=== PATIENT | male | born 1950 | race Caucasian/White ===

== ENCOUNTER 2022-04-08 15:32 | Inpatient (IN) ==
[2022-04-09] MEDS: Acetaminophen 325 MG TABLET PO PRN (20:19)
[2022-04-09] MEDS: carvediloL 6.25 MG TABLET PO SCH (20:25)
[2022-04-09] MEDS: Nystatin SUSP 5 ML UD.LIQ PO SCH (20:27)
[2022-04-09] MEDS: NIFEdipine XL (24 HR) 30 MG TAB.ER.24 PO SCH (20:27)
[2022-04-09] MEDS: Melatonin 3 MG TABLET PO SCH (20:33)
[2022-04-09] MEDS: Mirtazapine 15 MG TABLET PO SCH (20:33)
[2022-04-10 04:30] LABS: Basophils % 0.2 %; Eosinophils % 0.2 %; Hematocrit 25.7 % (37.5-50.1); Hemoglobin 8.9 g/dL (12.9-16.9); Lymphocytes % 15.8 %; Mean Corpuscular HGB Conc 34.6 g/dL (31.6-35.5); Mean Corpuscular Hemoglobin 28.7 pg (28.0-33.3); Mean Corpuscular Volume 82.9 fL (83.0-100.0); Mean Platelet Volume 10.4 fL (9.4-12.4); Monocytes # 0.4 K/mcL (0.0-1.3); Monocytes % 8.9 %; Platelet Count 223 K/mcL (140-400); Red Cell Distribution Width 16.8 % (11.5-14.5); Segmented Neutrophils % 73.9 %; White Blood Count 4.1 K/mcL (4.3-11.1)
[2022-04-10 04:31] LABS: Lymphocytes # 0.7 K/mcL (0.6-4.6)
[2022-04-10 04:44] LABS: Calcium 8.9 mg/dL (8.6-10.3); Potassium 3.1 mEq/L (3.5-5.1)
[2022-04-10] MEDS: *HR* Enoxaparin 40 MG/0.4 ML SYRINGE SQ SCH (05:37)
[2022-04-10] MEDS: Thiamine (B-1) 100 MG TABLET PO SCH (08:17)
[2022-04-10] MEDS: Pyridoxine (B-6) 50 MG TABLET PO SCH (08:17)
[2022-04-10] MEDS: Fluconazole 100 MG TABLET PO SCH (08:17)
[2022-04-10] MEDS: Nystatin SUSP 5 ML UD.LIQ PO SCH ×4 (08:18→22:29)
[2022-04-10] MEDS: CYCLOSPORINE 25 MG PO SCH ×2 (08:18→22:14)
[2022-04-10] MEDS: carvediloL 6.25 MG TABLET PO SCH ×2 (08:18→17:57)
[2022-04-10 17:52] LABS: Bilirubin,Urine Negative (Negative); Blood,Urine Negative (Negative); Clarity,Urine Clear (Clear); Color,Urine Yellow (Yellow); Glucose,Urine (UA) Normal (Normal); Ketones,Urine Negative (Negative); Leukocyte Esterase,Urine Negative (Negative); Nitrite,Urine Negative (Negative); PH,Urine 6.5 pH Units (5.0-8.0); Protein,Urine Negative (Neg-Trace); Specific Gravity,Urine 1.015 (1.010-1.025); Urobilinogen,Urine Normal (Normal)
[2022-04-10] MEDS: Acetaminophen 325 MG TABLET PO PRN (17:57)
[2022-04-10] MEDS: Furosemide 40 MG TABLET PO SCH (18:00)
[2022-04-10] MEDS: Melatonin 3 MG TABLET PO SCH (22:25)
[2022-04-10] MEDS: NIFEdipine XL (24 HR) 30 MG TAB.ER.24 PO SCH (22:27)
[2022-04-10] MEDS: Mirtazapine 15 MG TABLET PO SCH (22:27)
[2022-04-11] MEDS: *HR* Enoxaparin 40 MG/0.4 ML SYRINGE SQ SCH (06:22)
[2022-04-11 06:30] VITALS: BP 114/61; PULSE 85; RESP 17; TEMP 98.9; O2SAT 96
[2022-04-11] MEDS: Nystatin SUSP 5 ML UD.LIQ PO SCH ×3 (07:54→16:19)
[2022-04-11] MEDS: carvediloL 6.25 MG TABLET PO SCH ×2 (07:54→16:18)
[2022-04-11] MEDS: Thiamine (B-1) 100 MG TABLET PO SCH (07:54)
[2022-04-11] MEDS: Fluconazole 100 MG TABLET PO SCH (07:54)
[2022-04-11] MEDS: Pyridoxine (B-6) 50 MG TABLET PO SCH (07:54)
[2022-04-11] MEDS: Furosemide 40 MG TABLET PO SCH (07:54)
[2022-04-11] MEDS: CYCLOSPORINE 25 MG PO SCH (07:55)
[2022-04-11 10:16] LABS: Basophils % 0.4 %; Eosinophils % 0.2 %; Hematocrit 27.7 % (37.5-50.1); Hemoglobin 9.5 g/dL (12.9-16.9); Immature Granulocytes % 1.1 % (0-4); Lymphocytes # 0.8 K/mcL (0.6-4.6); Lymphocytes % 13.8 %; Mean Corpuscular HGB Conc 34.3 g/dL (31.6-35.5); Mean Corpuscular Hemoglobin 28.7 pg (28.0-33.3); Mean Corpuscular Volume 83.7 fL (83.0-100.0); Mean Platelet Volume 10.1 fL (9.4-12.4); Monocytes # 0.5 K/mcL (0.0-1.3); Monocytes % 9.1 %; Neutrophils # 4.1 K/mcL (1.6-8.9); Platelet Count 254 K/mcL (140-400); Red Blood Count 3.31 M/mcL (4.19-5.50); Red Cell Distribution Width 16.9 % (11.5-14.5); Segmented Neutrophils % 75.4 %; White Blood Count 5.5 K/mcL (4.3-11.1)
[2022-04-11 10:36] LABS: Albumin 3.7 g/dL (3.5-5.7); Albumin/Globulin Ratio 1.5 (1.1-2.2); Bilirubin,Total 0.9 mg/dL (0.3-1.0); Calcium 9.2 mg/dL (8.6-10.3); Globulin 2.4 g/dL (2.4-3.5); Potassium 3.3 mEq/L (3.5-5.1); Total Protein 6.1 g/dL (6.4-8.9)
== END 2022-04-12 12:40 | disposition short-term general hospital (02) | DRG 97 ==
LOC: INPGRE 04-09 18:40
PROVIDERS: ADMIT Family Medicine; ATTEND Family Medicine